=== PATIENT | male | born 1940 | race Caucasian/White ===

== ENCOUNTER 2017-04-05 07:00 | Observation (INO) ==
[2017-04-05] MEDS ORDERED: ASPIRIN PO STA (07:17)
[2017-04-05 07:46] LABS: MANUAL DIFF NEEDED? NO
--- NOTE | 2017-04-05 07:56 | PROVIDER DOCUMENTATION ---
HPI-Chest Pain - General Chief Complaint: Chest Pain Stated Complaint: CP Time Seen by Provider: 04/05/17 07:16 Allergies/Adverse Reactions: Patient Allergies Allergy/AdvReac Type Severity Reaction Status Date / Time No Known Allergies Allergy Verified 04/05/17 07:47 Home Medications: Home Medication List Medication Instructions Recorded Confirmed Last Taken Type Aspirin 325 mg PO DAILY 04/05/17 04/05/17 04/05/17 05:30 History 325 MG Atorvastatin Calcium 20 mg PO DAILY 04/05/17 04/05/17 04/05/17 05:30 History 20 MG Celecoxib [Celebrex] 200 mg PO DAILY 04/05/17 04/05/17 04/05/17 05:30 History 200 MG Levothyroxine [Synthroid] 50 microgm PO DAILY 04/05/17 04/05/17 04/05/17 05:30 History 50 MICROGM Metoprolol Succinate E.r. [Toprol 50 mg PO DAILY 04/05/17 04/05/17 04/05/17 05: 30 History Xl] 50 MG Multivitamin [Multivitamins] 1 each PO DAILY 04/05/17 04/05/17 04/05/17 05:30 History 1 EACH - History of Present Illness-CP Nature of Presenting Problem: Reports R shoulder blade area pain with radiating to substernal area started 2- 3 hours ago. Diaphoretic but no SOB. Same pain as when he had stent in 1994. Been seeing Dr. Solis, Rehabilitation Therapist at [place] and most recent stress test was 4 years ago, which was normal. The pain lasted about 40min and resolved when seen at ER. Location: reports: substernal, shoulder, back Chest Pain Radiation: reports: other (See above) Quality of Pain: reports: aching Severity in ED: moderate Onset/Duration: 1-3 hours ago Timing: improving, gone now Context/Activities at Onset: reports: none Modifying Factors: improves with: nothing Associated Symptoms: reports: diaphoresis. denies: dizziness, nausea, syncope, vomiting Nitro Today/Relief: no nitro taken today Aspirin Treatment Today: 325 mg x 1 Prior Chest Pain/Cardiac Workup: reports: cardiac cath, heart attack, stress test. denies: pulmonary embolism, thallium scan Similar Symptoms Previously?: Yes Recently Seen Here or By Another Healthcare Provider: No Review of Systems - Adult - REVIEW OF SYSTEMS - ADULT Constitutional: reports: no symptoms reported Eyes: reports: no symptoms reported Ears, Nose, Mouth & Throat: reports: no symptoms reported Cardiovascular: reports: see HPI, chest pain. denies: orthopnea, poor circulation, syncope Respiratory: reports: see HPI. denies: cough Gastrointestinal: reports: no symptoms reported Genitourinary: reports: no symptoms reported Musculoskeletal: reports: no symptoms reported Integumentary: reports: no symptoms reported Neurological: reports: no symptoms reported Psychiatric: reports: no symptoms reported Endocrine: reports: no symptoms reported Hematologic/Lymphatic: reports: no symptoms reported Allergic/Immunologic: reports: no symptoms reported All Other Systems: Reviewed and Negative Past History - Adult - PAST MEDICAL HISTORY-ADULT Review of Records: reports: Old Records Reviewed, Nursing Assessment Review, Medications Reviewed, Social history reviewed & non-contributory. Physical Exam-General - PHYSICAL EXAM-ADULT Initial Vital Signs Reviewed: Yes - CONSTITUTIONAL General Appearance: appears well, alert, no apparent distress - EYES Eyes: PERRL/EOMI, pink conjunctivae - HEAD, EARS, NOSE, MOUTH & THROAT HENMT: normocephalic/atraumatic, moist mucous membranes, normal ENT inspection - NECK Neck: non-tender, full range of motion, supple - RESPIRATORY Respiratory: chest non-tender, lungs clear, normal breath sounds, no pleuratic chest pain, no respiratory distress - CARDIOVASCULAR Cardiovascular: normal peripheral pulses, regular rate, rhythm, no edema - GASTROINTESTINAL (ABDOMEN) Abdominal Exam: normal bowel sounds, non tender, soft, no organomegaly, no pulsatile mass - MUSCULOSKELETAL Back Exam: normal inspection, no CVA tenderness, no vertebral tenderness Extremity: normal range of motion, non-tender, normal gait, normal inspection - SKIN Integumentary: normal color, normal turgor, warm/dry - NEUROLOGIC Neurologic: no motor/sensory deficits - PSYCHIATRIC Psych/Mental Status: normal mood/affect, normal thought content, normal thought process, oriented x 3 Progress - PLAN OF CARE/RESULTS Progress/Plan/Lab Results: Vital Signs - 8 hr 04/05/17 07:07 Temperature 97.9 F Pulse Rate 71 Respiratory Rate 18 Blood Pressure 179/77 O2 Sat by Pulse Oximetry 97 Laboratory Results - last 24 hr 04/05/17 04/05/17 04/05/17 07:34 07:34 07:34 WBC 4.40 L RBC 4.33 L Hgb 14.2 Hct 42.0 MCV 97.0 MCH 32.8 H MCHC 33.8 RDW Std Deviation 13.2 Plt Count 42 L MPV 10.2 Immature Gran % (Auto) 0.5 Neut % (Auto) 59.4 Lymph % (Auto) 23.9 [place] % (Auto) 10.7 H Eos % (Auto) 4.8 Baso % (Auto) 0.7 Immature Gran # (Auto) 0.02 Neut # (Auto) 2.62 Lymph # (Auto) 1.05 L [place] # (Auto) 0.47 Eos # (Auto) 0.21 Baso # (Auto) 0.03 PT INR PTT (Actin FS) D-Dimer 0.70 H Sodium 140 Potassium 4.2 Chloride 105 Carbon Dioxide 21 L Anion Gap 14 BUN 15 Creatinine 0.8 Estimated GFR/1.73 m2 > 60 BUN/Creatinine Ratio 19 Glucose 97 Calculated Osmolality 280 Calcium 8.8 Magnesium 2.1 Total Bilirubin 0.75 AST 19 ALT 12 Alkaline Phosphatase 79 Creatine Kinase 148 Troponin T Une-U-Hlfwxgeoxmr Pept Total Protein 6.8 Albumin 4.0 Globulin 2.8 Albumin/Globulin Ratio 1.4 Lipase Urine Source Urine Color Urine Turbidity Urine pH Ur Specific [place] Urine Protein Ur Glucose (Stick) Ur Ketones (Stick) Urine Blood Urine Nitrite Urine Bilirubin Urobilinogen Dipstick Urine Leukocytes Urine WBC (Auto) Urine RBC (Auto) U Epithel Cells (Auto) Urine Bacteria (Auto) 04/05/17 04/05/17 04/05/17 07:34 07:34 07:34 WBC RBC Hgb Hct MCV MCH MCHC RDW Std Deviation Plt Count MPV Immature Gran % (Auto) Neut % (Auto) Lymph % (Auto) [place] % (Auto) Eos % (Auto) Baso % (Auto) Immature Gran # (Auto) Neut # (Auto) Lymph # (Auto) [place] # (Auto) Eos # (Auto) Baso # (Auto) PT 10.2 INR 0.97 PTT (Actin FS) 20.5 L D-Dimer Sodium Potassium Chloride Carbon Dioxide Anion Gap BUN Creatinine Estimated GFR/1.73 m2 BUN/Creatinine Ratio Glucose Calculated Osmolality Calcium Magnesium Total Bilirubin AST ALT Alkaline Phosphatase Creatine Kinase Troponin T < 0.010 Dhl-S-Loabrqjfurq Pept 170 Total Protein Albumin Globulin Albumin/Globulin Ratio Lipase Urine Source Urine Color Urine Turbidity Urine pH Ur Specific [place] Urine Protein Ur Glucose (Stick) Ur Ketones (Stick) Urine Blood Urine Nitrite Urine Bilirubin Urobilinogen Dipstick Urine Leukocytes Urine WBC (Auto) Urine RBC (Auto) U Epithel Cells (Auto) Urine Bacteria (Auto) 04/05/17 04/05/17 07:34 07:55 WBC RBC Hgb Hct MCV MCH MCHC RDW Std Deviation Plt Count MPV Immature Gran % (Auto) Neut % (Auto) Lymph % (Auto) [place] % (Auto) Eos % (Auto) Baso % (Auto) Immature Gran # (Auto) Neut # (Auto) Lymph # (Auto) [place] # (Auto) Eos # (Auto) Baso # (Auto) PT INR PTT (Actin FS) D-Dimer Sodium Potassium Chloride Carbon Dioxide Anion Gap BUN Creatinine Estimated GFR/1.73 m2 BUN/Creatinine Ratio Glucose Calculated Osmolality Calcium Magnesium Total Bilirubin AST ALT Alkaline Phosphatase Creatine Kinase Troponin T Ymt-Z-Owhmbjwxyau Pept Total Protein Albumin Globulin Albumin/Globulin Ratio Lipase 28 Urine Source CLEAN CATCH Urine Color YELLOW Urine Turbidity CLEAR Urine pH 5.5 Ur Specific [place] 1.029 Urine Protein TRACE A Ur Glucose (Stick) NEGATIVE Ur Ketones (Stick) NEGATIVE Urine Blood NEGATIVE Urine Nitrite NEGATIVE Urine Bilirubin NEGATIVE Urobilinogen Dipstick NORMAL Urine Leukocytes NEGATIVE Urine WBC (Auto) <10 Urine RBC (Auto) <10 U Epithel Cells (Auto) <10 Urine Bacteria (Auto) NEGATIVE Orders Category Date Time Status Cardiac Monitoring DIRECTED Care 04/05/17 07:17 Active Saline Loc NOW Care 04/05/17 07:17 Active ANGIOGRAM/PULMONARY ARTERIES [CT] Stat Exams 04/05/17 08:59 Taken CHEST-PORTABLE [RAD] Stat Exams 04/05/17 07:17 Draft CBC WITH ELECTRONIC DIFF [HEME] Stat Lab 04/05/17 07:34 Completed CK PROFILE [SP CHEM] Stat Lab 04/05/17 07:34 Completed CK PROFILE [SP CHEM] Stat Lab 04/05/17 10:19 Uncollected COMPREHENSIVE METABOLIC PANEL [CHEM] Stat Lab 04/05/17 07:34 Completed D-DIMER [CHEM] Stat Lab 04/05/17 07:34 Completed LIPASE [CHEM] Stat Lab 04/05/17 07:34 Completed MAGNESIUM [CHEM] Stat Lab 04/05/17 07:34 Completed PRO B-NATRIURETIC PEPTIDE Stat Lab 04/05/17 07:34 Completed PROTIME WITH INR [COAG] Stat Lab 04/05/17 07:34 Completed PTT [COAG] Stat Lab 04/05/17 07:34 Completed TROPONIN T Stat Lab 04/05/17 07:34 Completed TROPONIN T Stat Lab 04/05/17 10:19 Uncollected UA NIMS W/REFLEX CULT [URINALYSIS] Stat Lab 04/05/17 07:55 Completed Aspirin Med 04/05/17 07:17 Discontinued 325 mg PO STAT STA EKG [EKG] Stat Ther 04/05/17 07:10 Draft Result Diagrams: 04/05/17 07:34 04/05/17 07:34 - EKG 1 EKG Interpretation (*Must complete 3 of following elements*): Normal Rate: 68 Rhythm: NSR [place]: normal QRS: normal DC Interval: normal - XRAY 1 XRAY Study: Chest Impression: Normal - CONSULTS/PCP/HOSPITALIST Notification Time Discussed: 10:36 Reason/Comments: Admit to Dr. Ho Consult Disposition: Admit Departure - Departure Time of Disposition Decision: 10:36 DIAGNOSIS: Chest pain Qualifiers: Chest pain type: precordial pain Qualified Code(s): R07.2 - Precordial pain Disposition: ADMITTED INPATIENT 09 Certified Medical Emergency: Emergent Condition: Stable Referrals and Follow-Ups: Daniel Davis DO [Primary Care Provider] - - Critical Care Note This patient required my direct & personal management of CC.: No
[2017-04-05 07:57] LABS: BASO% 0.7 % (0.0-0.8); EOS# 0.21 X1000 (0.0-0.7); EOS% 4.8 % (0.0-10.0); HEMOGLOBIN 14.2 g/dL (14.0-18.0); IMM GRAN# 0.02 X1000 (0.0-0.04); IMM GRAN% 0.5 % (0.0-0.5); LYMPH# 1.05 X1000 (1.2-3.4); LYMPH% 23.9 % (20.5-51.1); MCH 32.8 PG (27-31); MCHC 33.8 g/dL (33-37); MONO# 0.47 X1000 (0.11-0.59); MONO% 10.7 % (1.7-9.3); MPV 10.2 FL (7.4-10.4); NEUT% 59.4 % (42.2-75.2); PLT 42 X1000 (130-400); RBC 4.33 XMIL (4.7-6.1)
[2017-04-05 07:59] LABS: URINE CULTURE NEEDED? NO; URINE MICRO REVIEW NEEDED? NO; URINE SOURCE CLEAN CATCH
[2017-04-05 07:59] LABS: INR 0.97; PROTIME 10.2 Seconds (9.2-11.7); PTT 20.5 Seconds (22.0-36.0)
[2017-04-05 08:07] LABS: BILIRUBIN URINE NEGATIVE (NEGATIVE); BLOOD URINE NEGATIVE (NEGATIVE); COLOR YELLOW; GLUCOSE URINE NEGATIVE (NEGATIVE); LEUKOCYTES URINE NEGATIVE (NEGATIVE); NITRITE URINE NEGATIVE (NEGATIVE); PH URINE 5.5; PROTEIN URINE TRACE mg/dL (NEGATIVE); SP GRAVITY URINE 1.029; TURBIDITY URINE CLEAR (CLEAR); UROBILINOGEN URINE NORMAL (NORMAL)
[2017-04-05 08:09] LABS: UR EPITHELIAL CELLS <10 /HPF (<10); URINE BACTERIA NEGATIVE /HPF; URINE RBC <10 /HPF (<10); URINE WBC <10 /HPF (<10)
[2017-04-05 08:14] LABS: AGAP 14; ALKALINE PHOSPHATASE 79 U/L (32-122); BUN 15 mg/dL (8-22); CALCIUM 8.8 mg/dL (8.8-10.2); CHLORIDE 105 mmol/L (98-107); CK PROFILE 148 U/L (24-204); COSMO 280; GOT 19 U/L (10-34); GPT 12 U/L (10-44); MAGNESIUM 2.1 mg/dL (1.5-2.7); POTASSIUM 4.2 mmol/L (3.5-5.1); SODIUM 140 mmol/L (136-145); TCO2 21 mmol/L (25-35); TOTAL BILIRUBIN 0.75 mg/dL (0.20-1.00); TOTAL PROTEIN 6.8 g/dL (6.3-8.3)
--- NOTE | 2017-04-05 08:54 | Diag Imaging Result Document ---
PROCEDURE NAME: CHEST-PORTABLE - 04/05/2017 PORTABLE CHEST X-RAY: COMPARISON: None. FINDINGS: The lungs are normally expanded and clear. Heart size and mediastinal contours are normal. No pneumothorax or pleural effusion. IMPRESSION: Negative exam.
--- NOTE | 2017-04-05 10:05 | EKG Report ---
Test Performed on : 04/05/2017 07:11:27 AM Test Reason : CP Blood Pressure : / mmHG Vent. Rate : 068 BPM Atrial Rate : 068 BPM P-R Int : 140 ms QRS Dur : 078 ms QT Int : 406 ms P-R-T Axes : 038 006 076 degrees QTc Int : 431 ms Normal sinus rhythm. Normal ECG When compared with ECG of 03-FEB-2011 10:46, No significant change was found Unconfirmed Result
--- NOTE | 2017-04-05 11:21 | Diag Imaging Result Document ---
PROCEDURE NAME: ANGIOGRAM/PULMONARY ARTERIES - 04/05/2017 CT PULMONARY ANGIOGRAM WITH INTRAVENOUS CONTRAST: A CT dose reduction protocol was used. COMPARISON: None. FINDINGS: Axial CT images of the chest were obtained after administering intravenous contrast. Coronal MIP images were generated. There is no pulmonary embolism. Heart and great vessels are normal. Aside from a couple of granulomas, the lungs are clear. There is a small 1.3 cm left adrenal nodule. Otherwise, upper abdominal images are normal. Bony structures are intact. IMPRESSION: Negative exam. MTDD
[2017-04-05] MEDS ORDERED: ZOFRAN IV PRN (13:50)
--- NOTE | 2017-04-05 15:07 | HISTORY AND PHYSICAL ---
PCP: Dr. Daniel Davis. REGULATOR INSPECTOR: [facility] [place]. CHIEF COMPLAINT: Chest pain. HISTORY OF PRESENT ILLNESS: Mr. Nice is a very pleasant 76-year-old male who is a history of known coronary disease status post stenting to the circumflex artery. He was in his normal state of health until this morning at which time he awoke with chest pain that he states is previous to similar anginal episodes prior to his circumflex stenting. He describes a dull right shoulder pain followed by midsternal pain. This is associated with some mild diaphoresis but no shortness of breath and no nausea or vomiting. The pain lasted about 45 minutes and was relieved with nothing. Prior to this morning's episode he has been in his normal state of health. He denies any exertional chest pain, he can walk up a flight of steps without any chest pain. He denies lower extremity edema or orthopnea. No PND. He denies any fever, chills, cough or congestion. He got to the ER today. Labs and diagnostics were done, EKG showed normal sinus rhythm without acute ST or T abnormalities and his blood work were largely unremarkable with the exception of leukopenia and thrombocytopenia. His vital signs are stable. He is going to be admitted to the floor for observation status. PAST MEDICAL HISTORY: 1. Known coronary disease status post stenting to the circumflex artery followed by Dr. Solis in [place]. 2. Hypothyroidism. 3. Hyperlipidemia. PAST SURGICAL HISTORY: Stenting to the circumflex artery followed by in stent restenoses and re- stenting. SOCIAL HISTORY: Patient denies tobacco, alcohol or drug use. He is , at the bedside. FAMILY HISTORY: Father in the 80s secondary to house fire. Mother is also recently he believes secondary to intracranial bleeding secondary to fall. REVIEW OF SYSTEMS: Fourteen-point review of systems obtained and found to be negative with the exception of the HPI. HOME MEDICATIONS: Aspirin 325 mg daily, atorvastatin 20 mg daily. Celebrex 200 mg daily, Synthroid 50 mcg daily, Toprol-XL 50 mg daily, multivitamin 1 daily. ALLERGIES: No known drug allergies. PHYSICAL EXAMINATION: VITAL SIGNS: Blood pressure 179/77, heart rate 71, respiratory 18, O2 saturation 97% on room air, temperature is 97.9 degrees. GENERAL: This is a well-developed but overweight male lying in hospital bed. No acute distress. NEUROLOGIC: The patient is awake, alert and oriented. He follows commands without focal deficits. HEENT: Head is atraumatic, normocephalic. His pupils are equal, round, reactive to light. Oral mucosa is moist. Trachea is midline. No JVD. No carotid bruits. CHEST: Clear to auscultation bilaterally. CV: Regular rate and rhythm. S1-S2 is noted. No murmurs, gallops, clicks, or rubs. GI: Soft, nondistended, nontender. Bowel sounds positive. EXTREMITIES: Without edema, clubbing, cyanosis. Pulses are palpable bilaterally. DIAGNOSTIC DATA: Chest x-ray is negative for acute process. EKG normal sinus rhythm without acute ST-T abnormalities. WBC 4.4, hemoglobin 14.2, hematocrit 42, PT 10.2, INR 0.97, D-dimer 0.7. Sodium 140, potassium 4.2, chloride 105, CO2 21, anion gap 14, BUN 15, creatinine 0.8, glucose is 97, calcium 8.8, magnesium 2.1. LFTs within normal limits. Cardiac enzymes negative x2 sets. Albumin 4, lipase 28. UA negative. ASSESSMENT AND PLAN: 1. Chest pain. Patient reports that the pain is similar to previous pain just prior to his stenting in 1993. However overall the pain is atypical. Will admit the patient for observation status and consult Cardiology, order echocardiogram and continue to trend his enzymes. Will check a lipid panel in the morning as well as a hemoglobin A1c. 2. Coronary artery disease as above. 3. Leukopenia/thrombocytopenia: Patient does not report any hematologic history. Will check a B12, folate and thyroid function and trend his CBC daily. He denies any history of liver disease as well. 4. Hypothyroidism: Continue his Synthroid and check thyroid function. 5. Deep vein thrombosis prophylaxis will be provided with Lovenox. Further recommendations to follow. Dictated by HELEN Berkowitz for Lola Ambriz MD cc: MD Lola Cardenas MD
--- NOTE | 2017-04-05 16:28 | CONSULTATION ---
DATE OF CONSULTATION: 04/05/2017 REASON FOR CONSULTATION: Cardiology consulted for chest pain, CAD. HISTORY OF PRESENT ILLNESS: Mr. Nice is a 76-year-old gentleman who has a known history of coronary artery disease with stent placement to circumflex artery. He had been doing well. He woke up this morning with chest discomfort that he describes as a pressure-like sensation, going to the left interscapular region. This lasted for about 45 minutes. He came to the emergency room and was ruled out for myocardial infarction by cardiac enzymes. Prior to this episode he has not had any exertional chest discomfort in the last 6 months. There is no orthopnea, paroxysmal nocturnal dyspnea. He has otherwise been active. REVIEW OF SYSTEMS: A 14 point review of system was done. GI System: There is no history of nausea, vomiting, diarrhea. There is no history of hematemesis or melena. Central nervous system: No focal weakness to suggest CVA or TIA. GI system: There is no dysuria or hematuria. Respiratory System: There is no history of cough, expectoration, hemoptysis. There is no history of fevers or chills. PAST MEDICAL HISTORY: 1. Coronary artery disease, status post stent placement to the circumflex artery. 2. Hypothyroidism. 3. Hyperlipidemia. 4. Abdominal colon surgery. SOCIAL HISTORY: Patient denies tobacco or alcohol abuse. Is . FAMILY HISTORY: Father in his 80s from a house fire house. Mother is recently secondary to intracranial bleed. HOME MEDICATIONS: Aspirin 325, atorvastatin 20, Celebrex 200, Synthroid 50, Toprol-XL 50, multivitamins. PHYSICAL EXAMINATION: Vital signs: Blood pressure when he came in was 179/77. At the time of my examination, blood pressure 148/66. Cardiovascular System: Normal jugular venous pressure. First and second heart sounds were heard. There is no S3, S4 or gallop. Respiratory System: Normal air entry. There are no crepitations or rhonchi. Abdomen: Soft, nontender. There was no guarding or rigidity. Bowel sounds were heard. Central nervous system: Alert and oriented. Was moving all 4 extremities. Extremities: Examination of extremities reveals no pedal edema. HEENT: Atraumatic, normocephalic. Pupils were equal and reacting to light. ASSESSMENT AND PLAN: 1. Mr. Иван Nice is a 76-year-old gentleman with a history of coronary artery disease, stent placement in the past, abdominal surgery in the past, hypothyroidism, and hypertension, comes with complaints of chest pain today. Otherwise he has been active. He has ruled out for myocardial infarction by cardiac enzymes. From a cardiac standpoint, we will get an echocardiogram to reassess cardiac and valvular function. We will also set him up to undergo a Cardiolite stress test to assess for and rule out ischemia. 2. Hypertension. Continue with his current medications. 3. Hypothyroidism continue with his levothyroxine. 4. He is on Lipitor for hyperlipidemia. Continue with the same. Thank you for the consult. We will follow the hospital course. cc: Mario Adkins MD
[2017-04-05] MEDS: LOVENOX SUBQ SCH (16:42)
[2017-04-06 05:21] LABS: HEMATOCRIT 43.7 % (42.0-52.0); HEMOGLOBIN 14.7 g/dL (14.0-18.0); MCHC 33.6 g/dL (33-37); MPV 9.3 FL (7.4-10.4); RBC 4.46 XMIL (4.7-6.1)
[2017-04-06 05:22] LABS: HEMOGLOBIN A1C 5.3 % (4.8-6.0)
[2017-04-06 05:37] LABS: AGAP 14; BUN 16 mg/dL (8-22); CALCIUM 9.1 mg/dL (8.8-10.2); CHLORIDE 104 mmol/L (98-107); COSMO 282; HDL 52 mg/dL (35-55); LDL 74 mg/dL; MAGNESIUM 2.1 mg/dL (1.5-2.7); POTASSIUM 4.3 mmol/L (3.5-5.1); SODIUM 141 mmol/L (136-145); TCO2 23 mmol/L (25-35); TRIGLYCERIDES 172 mg/dL (39-160); VLDL 34 mg/dL
--- NOTE | 2017-04-06 06:17 | EKG Report ---
Test Performed on : 04/06/2017 05:59:30 AM Test Reason : chest pain Blood Pressure : / mmHG Vent. Rate : 064 BPM Atrial Rate : 064 BPM P-R Int : 198 ms QRS Dur : 086 ms QT Int : 416 ms P-R-T Axes : 074 -03 081 degrees QTc Int : 429 ms Normal sinus rhythm. Normal ECG When compared with ECG of 05-APR-2017 07:11, (Unconfirmed) No significant change was found Confirmed by Surjit Lora MD ([id number]) on 04/06/2017 6:50:29 AM
[2017-04-06] MEDS ORDERED: LEXISCAN ONE (08:13)
[2017-04-06] MEDS ORDERED: ASPIRIN PO SCH (09:00)
[2017-04-06] MEDS ORDERED: THERA M PLUS PO SCH (09:00)
[2017-04-06] MEDS ORDERED: LIPITOR PO SCH (09:00)
[2017-04-06] MEDS ORDERED: TOPROL XL PO SCH (09:00)
[2017-04-06] MEDS ORDERED: SYNTHROID PO SCH (09:00)
[2017-04-06] MEDS: LOVENOX SUBQ SCH (10:24)
[2017-04-06 12:02] VITALS: BP 132/102
--- NOTE | 2017-04-06 13:01 | ECHO REPORT ---
ORDER DATE: 04/05/2017 MEASUREMENTS: Left ventricular end-diastolic diameter 5.7, systolic diameter 3.7, posterior wall thickness 1.1, septal thickness 1.1, left atrium 4.5, aortic root 4.3. SUMMARY: 1. Technically difficult study due to limited acoustic window quality. Intravenous echo contrast agent Definity utilized to improve endocardial definition for assessment of left ventricular function and wall motion. 2. Aortic valve is trileaflet and opens well. Peak gradient across aortic valve was less than 10 mmHg. There is mild aortic regurgitation. Mitral and tricuspid and pulmonic valves are without structural abnormality with trace mitral regurgitation. Estimated systolic PA pressure by Doppler is 30 mmHg. Aortic root is mildly enlarged. 3. Normal left ventricular dimension suggested. Estimated left ejection fraction appears to be at least 60%. No regional wall motion abnormalities are evident. There are prominent trabeculations in the lateral apex left ventricle. There is no evidence of left ventricular thrombus. Doppler suggests grade 1 left ventricular diastolic dysfunction. Left atrium is mildly enlarged. Right atrium and right ventricle normal size with normal right ventricular systolic function. 4. No pericardial fusion. 5. Appearance of inferior vena cava suggests normal central venous pressure. CONCLUSIONS: 1. Technically difficult study. Intravenous echo contrast agent Definity utilized to improve endocardial definition. 2. Mild aortic regurgitation. 3. Normal left ventricular systolic function without wall motion abnormality evident for grade 1 left ventricular diastolic dysfunction suggested. 4. Mild left atrial enlargement. 5. Mild aortic root enlargement. cc: MD Piotr Calvillo CRNP
--- NOTE | 2017-04-06 15:18 | PROGRESS NOTE ---
DATE: 04/06/2017 SUBJECTIVE: Today Mr. Nice referred to be doing fine. According to him, he does not have any more chest pain. No nausea, no diarrhea. OBJECTIVE: Vitals: Blood pressure is 132/102, pulse of 60, respirations 16, temperature 98.4 degrees. General: Mr. Nice is a 76-year-old male morbidly obese with a BMI of 34.3, was in bed, did not seems to be in any distress. HEENT: Mucosa was pink and moist. Anicteric. Acyanotic. Neck: Supple. Chest: Clear. Cardiovascular: Regular rate and rhythm. Abdomen: Soft, is distended but nontender. Extremities: No pedal edema. DENTAL SALES REPRESENTATIVE: Patient is alert and oriented x4. There is no focal neurological deficit. LABORATORY DATA: WBC is 6.58, hemoglobin is 14.7, platelet count of 172,000. Chemistries reviewed, completely normal. A1c is 5.3, TSH is 2.23. Lipid panel is also reviewed. Mildly hypertriglyceridemia. IMAGING DATA: A CTA of the lungs was done yesterday which was negative for PE. An echocardiogram was also done yesterday which shows an ejection fraction of about 60%. No regional wall abnormality. There was however a grade 1 ventricular diastolic dysfunction. ASSESSMENT: 1. Atypical chest pain. Patient is status post stress test. We are pending the report. So far EKGs and troponins have all been unremarkable. 2. History of coronary artery disease. 3. Hypothyroidism. Will continue with the current Synthroid dose. 4. Morbid obesity. Patient has been counseled. 5. Dyslipidemia. Will continue with atorvastatin. So in general I think Mr. Nice is relatively stable, is no more having any pain. Will be pending the official report on the stress test. If that is normal we might be able to discharge him. cc: Colin Rosales MD
--- NOTE | 2017-04-07 06:53 | DISCHARGE SUMMARY ---
ADMISSION DATE: 04/05/2017 DISCHARGE DATE: 04/06/2017 DISPOSITION: Home. FOLLOWUP: 1. Patient's annual giving officer in [place]. 2. PCP, Dr. Daniel Davis. 3. Portable Track Crew Chief, Dr. Solis. ADMISSION DIAGNOSES: 1. Chest pain. 2. Coronary artery disease. 3. Hypothyroidism. DISCHARGE DIAGNOSES: 1. Atypical chest pain. Normal troponins, normal electrocardiogram and stress test is negative. 2. History of coronary artery disease. 3. Hypothyroidism. 4. Morbid obesity. 5. Dyslipidemia. DISCHARGE MEDICATIONS: 1. Atorvastatin 20 mg daily. 2. Multivitamin 1 tablet daily. 3. Aspirin 325 p.o. daily. 4. Metoprolol succinate 50 mg daily. 5. Levothyroxine 50 mg daily. PRESENTING COMPLAINT: Chest pain. HISTORY OF PRESENTING COMPLAINT: Mr. Nice is a 76-year-old male with a history of coronary artery disease status post stenting in the circumflex artery, who presented to the emergency department because of ongoing chest pain for the past couple days. Upon presentation, patient was thoroughly evaluated. Initial troponins were negative and EKG was nonsignificant for any ST-segment or T-wave changes. The patient was, however, admitted because of the significant coronary disease to rule out any acute coronary syndrome. HOSPITAL COURSE: Patient did pretty well during the hospital stay, was started on her regular medications and Cardiology got to see the patient, who also recommended a stress test. This was subsequently done and it was completely negative. Patient's chest pain this morning was completely gone, so it was deemed safe to discharge the patient home. Continue with the current medication and follow up with Dr. Solis and Dr. Davis on outpatient basis. All the discharge instructions were discussed with the patient and he was in agreement with the plan. TIME SPENT: For discharge was 32 minutes. cc: Colin Rosales MD
--- NOTE | 2017-04-07 14:40 | PROGRESS NOTE ---
DATE: 04/07/2017 SUBJECTIVE: At this moment, this patient's chest pain is better. He has been getting pain medication. He is not complaining of shortness of breath. This patient was discharged yesterday secondary to chest pain that was atypical in nature with normal troponins, normal EKG, and stress test. He does have a history of coronary artery disease, hypothyroidism, morbid obesity, and dyslipidemia. He came back and he was evaluated and admitted again. We did serial troponin with the following results: 0.03, then it increased to 0.1, and then increased to 0.14. Dr. Adkins evaluated this patient, and he started making arrangements to send this patient to [facility]. Lovenox twice a day was started, as well as aspirin and home medications. OBJECTIVE: Vital Signs: Temperature 97.6 degrees, pulse is 61, respiratory rate 18, blood pressure 143/67, oxygen saturation 99% on room air. HEENT: Normocephalic. No trauma. PERRLA. Neck: supple. No JVD. No masses. Central trachea. Chest clear to auscultation. No wheezing. No rales. Cardiovascular: RRR. No murmurs. Abdomen is soft, nontender, nondistended. No hepatosplenomegaly. Extremities: No edema. No clubbing. No cyanosis. Neurologic: The patient is alert and oriented x3. No focal deficits. LABORATORY: WBC 7.2, hemoglobin 16, hematocrit 47, platelets 209,000. Sodium 140, potassium 3.9, chloride 104, bicarbonate 21. BUN 15, creatinine 0.9, glucose 94, calcium 9.2, troponin 0.03, 0.107, 0.146. ASSESSMENT AND PLAN: 1. Ibr-QF-kdueizuez myocardial infarction. This patient has been placed on Lovenox twice a day. Aspirin, beta blockers. Dr. Adkins evaluated this patient, and they are doing the arrangements to send this patient to [facility] for further treatment with Cardiology Department. 2. History of coronary artery disease, aware. 3. Hypothyroidism. Continue with the same management. 4. Dyslipidemia. Continue with statins. 5. Morbid obesity, aware. cc: Ger Ventura MD
--- NOTE | 2017-04-21 07:21 | Diag Imaging Result Document ---
PROCEDURE NAME: MYOCARDIAL PERF SCAN, STR/REST - 04/06/2017 LEXISCAN CARDIOLITE STRESS TEST: Lexiscan was infused per standard protocol. There was no chest pain. Stress electrocardiogram was negative for ischemia. 15.2 mCi of Cardiolite was injected for the rest phase, 45.8 mCi of Cardiolite was injected for the stress. Gated SPECT images were obtained standard views. Images revealed significant diaphragmatic and chest wall attenuation. Better tracer images on the stress compared to the rest. Left ventricular cavity size was normal. There is a low-grade fixed defect in the base of the inferior wall with normal wall motion. Rest of the myocardium had normal tracer uptake. This is likely to represent low-grade scar versus attenuation defect. Left ventricular ejection fraction 75%. CONCLUSIONS: 1. No chest pain. 2. Negative Lexiscan stress electrocardiogram. 3. Myocardial perfusion images reveal no evidence of ischemia. There is low-grade small-sized fixed defect in the base of the inferior wall with normal wall motion. This is likely to represent attenuation defect. 4. Left ventricular ejection fraction 75%. cc: Mario Adkins MD
== END 2017-04-06 16:30 | disposition home or self-care (01) ==
LOC: ED 07:00 → 3N 13:34 → SUATTDRO 13:34 → INTOOBSV 13:34
PROVIDERS: ATTEND Internal Medicine

== ENCOUNTER 2017-04-07 03:17 | Observation (INO) ==
[2017-04-07] MEDS ORDERED: ASPIRIN PO STA (03:27)
[2017-04-07] MEDS ORDERED: NITROGLYCERIN TOP ONE (03:31)
[2017-04-07] MEDS ORDERED: ZOFRAN IV ONE (03:31)
[2017-04-07] MEDS ORDERED: MORPHINE IV ONE ×2 (03:31→04:29)
[2017-04-07] MEDS ORDERED: NITROGLYCERIN SL ONE (03:31)
--- NOTE | 2017-04-07 03:42 | PROVIDER DOCUMENTATION ---
HPI-Chest Pain - General Chief Complaint: Chest Pain Stated Complaint: CHEST PAIN Time Seen by Provider: 04/07/17 03:21 Source: patient, family Allergies/Adverse Reactions: Patient Allergies Allergy/AdvReac Type Severity Reaction Status Date / Time No Known Allergies Allergy Verified 04/07/17 03:53 Home Medications: Home Medication List Medication Instructions Recorded Confirmed Last Taken Type Aspirin 325 mg PO DAILY 04/05/17 04/07/17 04/06/17 History Atorvastatin Calcium 20 mg PO DAILY 04/05/17 04/07/17 04/06/17 History Levothyroxine [Synthroid] 50 microgm PO DAILY 04/05/17 04/07/17 04/06/17 History Metoprolol Succinate E.r. [Toprol 50 mg PO DAILY 04/05/17 04/07/17 04/06/17 History Xl] Multivitamin [Multivitamins] 1 each PO DAILY 04/05/17 04/07/17 04/06/17 History - History of Present Illness-CP Nature of Presenting Problem: pt states he woke up about an hour ago from his sleep with severe pressure like pain lower sternum/slightly to right that radiated to his right shoulderr. He was briefly diaphoretic and slightly SOB. No Nausea. He took a adult str ASA and came directly to the ED. Currently the pain has decreased from a 9/10 to a 5 /10. It is not plueritic. It does not radiate to his back. HE was just in the hospital for this same pain and had serial enzymes which were negative, a neg Pulm angio, and a normal NM stress test. Review of Systems - Adult - REVIEW OF SYSTEMS - ADULT Constitutional: denies: chills, fever Eyes: denies: discharge Ears, Nose, Mouth & Throat: denies: ear pain, sinus problem, throat swelling Cardiovascular: reports: chest pain. denies: edema, irregular heart rate, orthopnea, palpitations, syncope Respiratory: reports: shortness of breath. denies: cough, hemoptysis, pleurisy , wheezing Gastrointestinal: reports: nausea. denies: abdominal pain, diarrhea, vomiting Genitourinary: denies: dysuria, flank pain Musculoskeletal: denies: back pain, muscle aches, neck pain Integumentary: denies: rash Neurological: denies: headache/migraines, numbness, paresthesia Psychiatric: reports: no symptoms reported Endocrine: reports: no symptoms reported Hematologic/Lymphatic: reports: no symptoms reported Allergic/Immunologic: reports: no symptoms reported All Other Systems: Reviewed and Negative Past History - Adult - PAST MEDICAL HISTORY-ADULT Review of Records: reports: Old Records Reviewed, Nursing Assessment Review, Medications Reviewed, Social history reviewed & non-contributory. - PRIOR SURGERIES/PROCEDURES Surgical/Procedure History: reports: other (cardiac stenting 1993, colon restion for diverticultis) - FAMILY HISTORY Family History: reviewed, not pertinent - SOCIAL HISTORY Smoking: denies Substance Use: none/never Alcohol Use Frequency: never Living Situation: family Physical Exam-General - PHYSICAL EXAM-ADULT Initial Vital Signs Reviewed: Yes - CONSTITUTIONAL General Appearance: appears well, alert, no apparent distress - EYES Eyes: pink conjunctivae. negative: scleral icterus - HEAD, EARS, NOSE, MOUTH & THROAT HENMT: normocephalic/atraumatic - NECK Neck: non-tender, full range of motion, supple, normal inspection. negative: lymphadenopathy - RESPIRATORY Respiratory: chest non-tender, lungs clear, normal breath sounds, no pleuratic chest pain, no respiratory distress, no accessory muscle use - CARDIOVASCULAR Cardiovascular: regular rate, rhythm, no edema, no murmur - GASTROINTESTINAL (ABDOMEN) Abdominal Exam: normal bowel sounds, non tender, soft, no organomegaly, no pulsatile mass - MUSCULOSKELETAL Back Exam: normal inspection, no CVA tenderness, no vertebral tenderness Extremity: normal range of motion, non-tender, normal gait, normal inspection, no pedal edema, no calf tenderness - SKIN Integumentary: normal color, normal turgor, warm/dry - NEUROLOGIC Neurologic: grossly normal, no motor/sensory deficits - PSYCHIATRIC Psych/Mental Status: normal mood/affect, normal thought content, normal thought process, oriented x 3 Progress - PLAN OF CARE/RESULTS Progress/Plan/Lab Results: Vital Signs - 8 hr 04/07/17 03:25 04/07/17 04:35 Temperature 97.6 F Pulse Rate 80 65 Respiratory Rate 16 9 L Blood Pressure 179/85 127/64 O2 Sat by Pulse Oximetry 98 92 L Laboratory Results - last 24 hr 04/07/17 04/07/17 04/07/17 03:30 03:30 03:30 WBC 7.21 RBC 4.95 Hgb 16.0 Hct 47.0 MCV 94.9 MCH 32.3 H MCHC 34.0 RDW Std Deviation 13.4 Plt Count 209 MPV 9.1 Immature Gran % (Auto) 0.3 Neut % (Auto) 61.0 Lymph % (Auto) 22.6 [place] % (Auto) 11.0 H Eos % (Auto) 4.3 Baso % (Auto) 0.8 Immature Gran # (Auto) 0.02 Neut # (Auto) 4.40 Lymph # (Auto) 1.63 [place] # (Auto) 0.79 H Eos # (Auto) 0.31 Baso # (Auto) 0.06 PT INR PTT (Actin FS) Sodium 140 Potassium 3.9 Chloride 104 Carbon Dioxide 21 L Anion Gap 15 BUN 15 Creatinine 0.9 Estimated GFR/1.73 m2 > 60 BUN/Creatinine Ratio 17 Glucose 94 Calculated Osmolality 280 Calcium 9.2 Magnesium 2.1 Total Bilirubin 1.01 H AST 21 ALT 14 Alkaline Phosphatase 81 Creatine Kinase 148 Troponin T Jnb-[id number]-[id number] Pept 129 Total Protein 6.9 Albumin 3.9 Globulin 3.0 Albumin/Globulin Ratio 1.3 04/07/17 04/07/17 03:30 03:30 WBC RBC Hgb Hct MCV MCH MCHC RDW Std Deviation Plt Count MPV Immature Gran % (Auto) Neut % (Auto) Lymph % (Auto) [place] % (Auto) Eos % (Auto) Baso % (Auto) Immature Gran # (Auto) Neut # (Auto) Lymph # (Auto) [place] # (Auto) Eos # (Auto) Baso # (Auto) PT 10.3 INR 0.98 PTT (Actin FS) 25.9 Sodium Potassium Chloride Carbon Dioxide Anion Gap BUN Creatinine Estimated GFR/1.73 m2 BUN/Creatinine Ratio Glucose Calculated Osmolality Calcium Magnesium Total Bilirubin AST ALT Alkaline Phosphatase Creatine Kinase Troponin T 0.033 D [id number]-Qcrgnnwcqch Pept Total Protein Albumin Globulin Albumin/Globulin Ratio Orders Category Date Time Status Cardiac Monitoring DIRECTED Care 04/07/17 03:28 Active Saline Loc NOW Care 04/07/17 03:28 Active CHEST-2 VIEWS [RAD] Stat Exams 04/07/17 03:28 Taken CBC WITH ELECTRONIC DIFF [HEME] Stat Lab 04/07/17 03:30 Completed CK PROFILE [SP CHEM] Stat Lab 04/07/17 03:30 Completed COMPREHENSIVE METABOLIC PANEL [CHEM] Stat Lab 04/07/17 03:30 Completed MAGNESIUM [CHEM] Stat Lab 04/07/17 03:30 Completed PRO B-NATRIURETIC PEPTIDE Stat Lab 04/07/17 03:30 Completed PROTIME WITH INR [COAG] Stat Lab 04/07/17 03:30 Completed PTT [COAG] Stat Lab 04/07/17 03:30 Completed TROPONIN T Stat Lab 04/07/17 03:30 Completed Aspirin Med 04/07/17 03:27 Discontinued 325 mg PO STAT STA Morphine Med 04/07/17 03:31 Discontinued 4 mg IV NOW ONE Morphine Med 04/07/17 04:29 Discontinued 4 mg IV NOW ONE Nitroglycerin Med 04/07/17 03:31 Discontinued 1 inch TOP NOW ONE Nitroglycerin Sl [Nitroglycerin] Med 04/07/17 03:31 Discontinued 0.4 mg SL NOW ONE Ondansetron [Zofran] Med 04/07/17 03:31 Discontinued 4 mg IV NOW ONE EKG [EKG] Stat Ther 04/07/17 03:19 Ordered Result Diagrams: 04/07/17 03:30 04/07/17 03:30 - REASSESSMENT Reassessment #1 Time Reassessed: 05:05 (pain much better, disc w/Pedro who asks that we call our group here first, disc w/Dr Connors who agrees pt needs cath which can be done here.) Status: improving - EKG 1 Time of EKG reading by physician:: 03:22 EKG Interpretation (*Must complete 3 of following elements*): Normal Rate: 80 Rhythm: sinus [place]: normal QRS: normal CT Interval: normal ST Wave: normal Prior EKG Comparison: unchanged from prior - XRAY 1 XRAY Study: Chest Impression: Normal Departure - Departure Time of Disposition Decision: 05:06 DIAGNOSIS: Chest pain Qualifiers: Chest pain type: unspecified Qualified Code(s): R07.9 - Chest pain, unspecified Disposition: ADMITTED INPATIENT 09 Certified Medical Emergency: Emergent Condition: Good - Critical Care Note This patient required my direct & personal management of CC.: No
[2017-04-07 03:58] LABS: MANUAL DIFF NEEDED? NO
[2017-04-07 04:01] LABS: BASO% 0.8 % (0.0-0.8); EOS# 0.31 X1000 (0.0-0.7); EOS% 4.3 % (0.0-10.0); IMM GRAN# 0.02 X1000 (0.0-0.04); IMM GRAN% 0.3 % (0.0-0.5); LYMPH# 1.63 X1000 (1.2-3.4); LYMPH% 22.6 % (20.5-51.1); MCH 32.3 PG (27-31); MCV 94.9 FL (81-99); MONO# 0.79 X1000 (0.11-0.59); MPV 9.1 FL (7.4-10.4); PLT 209 X1000 (130-400); RBC 4.95 XMIL (4.7-6.1)
[2017-04-07 04:09] LABS: INR 0.98; PROTIME 10.3 Seconds (9.2-11.7); PTT 25.9 Seconds (22.0-36.0)
[2017-04-07 04:19] LABS: AGAP 15; ALBUMIN 3.9 g/dL (3.5-5.0); ALKALINE PHOSPHATASE 81 U/L (32-122); BUN 15 mg/dL (8-22); CALCIUM 9.2 mg/dL (8.8-10.2); CHLORIDE 104 mmol/L (98-107); CK PROFILE 148 U/L (24-204); COSMO 280; GOT 21 U/L (10-34); GPT 14 U/L (10-44); MAGNESIUM 2.1 mg/dL (1.5-2.7); POTASSIUM 3.9 mmol/L (3.5-5.1); SODIUM 140 mmol/L (136-145); TCO2 21 mmol/L (25-35); TOTAL BILIRUBIN 1.01 mg/dL (0.20-1.00); TOTAL PROTEIN 6.9 g/dL (6.3-8.3)
--- NOTE | 2017-04-07 05:23 | EKG Report ---
Test Performed on : 04/07/2017 05:12:02 AM Test Reason : cp Blood Pressure : / mmHG Vent. Rate : 067 BPM Atrial Rate : 067 BPM P-R Int : 166 ms QRS Dur : 086 ms QT Int : 434 ms P-R-T Axes : 037 -13 076 degrees QTc Int : 458 ms Normal sinus rhythm. Normal ECG When compared with ECG of 07-APR-2017 03:22, (Unconfirmed) No significant change was found Unconfirmed Result
--- NOTE | 2017-04-07 05:23 | EKG Report ---
Test Performed on : 04/07/2017 03:22:05 AM Test Reason : cp Blood Pressure : / mmHG Vent. Rate : 080 BPM Atrial Rate : 080 BPM P-R Int : 200 ms QRS Dur : 094 ms QT Int : 392 ms P-R-T Axes : 065 -06 068 degrees QTc Int : 452 ms Normal sinus rhythm. Normal ECG When compared with ECG of 06-APR-2017 05:59, No significant change was found Unconfirmed Result
[2017-04-07] MEDS ORDERED: TYLENOL PO PRN (07:06)
[2017-04-07] MEDS ORDERED: PRILOSEC PO SCH (07:06)
[2017-04-07] MEDS ORDERED: NITROGLYCERIN SL PRN (07:06)
[2017-04-07] MEDS ORDERED: HEPARIN SUBQ SCH (07:06)
[2017-04-07] MEDS ORDERED: ZOFRAN IV PRN (07:06)
[2017-04-07] MEDS ORDERED: MORPHINE IV PRN (07:06)
--- NOTE | 2017-04-07 07:57 | Diag Imaging Result Doc PS360 ---
EXAM: CHEST-2 VIEWS HISTORY: CP COMMENT: The lungs appear to be clear and unchanged since the previous study of 04/05/2017. There are some calcified granulomata and calcified nodes particularly in the right hilum. IMPRESSION: No acute abnormality. Electronically signed by Dallas Zendejas 04/07/2017 7:55 AM
[2017-04-07] MEDS ORDERED: SYNTHROID PO SCH (09:00)
[2017-04-07] MEDS ORDERED: TOPROL XL PO SCH (09:00)
[2017-04-07] MEDS ORDERED: LIPITOR PO SCH (09:00)
[2017-04-07] MEDS ORDERED: ASPIRIN PO SCH (09:00)
[2017-04-07] MEDS ORDERED: LOVENOX SUBQ SCH (10:30)
[2017-04-07] MEDS ORDERED: NITROGLYCERIN TOP SCH (10:30)
[2017-04-07 15:00] VITALS: BP 138/65
--- NOTE | 2017-04-07 15:14 | HISTORY AND PHYSICAL ---
CHIEF COMPLAINT: Chest pain. HISTORY OF PRESENTING ILLNESS: A 76-year-old male with a history of coronary artery disease, hypertension, hyperlipidemia at hypothyroidism, who was just discharged from the hospital after having a negative work for chest pain. The patient states that he went home and developed chest pain again. He described it as substernal pressure-like and rated the pain about 8/10. The patient subsequently had come to the emergency department. He continued to have ongoing chest discomfort. He was given adequate pain medication and nitroglycerin and his pain seemed to improve. Due to his presenting symptoms, it was thought that the patient would be placed in for observation for further evaluation and management. At the time of my examination, he had denied any headaches, vision changes, nausea, vomiting, diarrhea, shortness of breath, hemoptysis or any weight changes but complained of chest discomfort. PAST MEDICAL HISTORY: Includes hyperlipidemia, hypertension, hypothyroidism, coronary artery disease. PAST SURGICAL HISTORY: Colon surgery, appendectomy, coronary stent. ALLERGIES: No known drug allergies. CURRENT MEDICATIONS: As listed in the MAR. SOCIAL HISTORY: He denies any history of smoking, alcohol or illicit drug use. FAMILY HISTORY: No history of coronary disease. REVIEW OF SYSTEMS: Twelve point review of systems is as in HPI. Other systems negative. PHYSICAL EXAMINATION: GENERAL: Cooperative, friendly male. He is resting comfortably now. VITAL SIGNS: Temperature 97.6 degrees, pulse 80, respirations 16, blood pressure 179/85, saturating 98%. HEENT: Atraumatic, normocephalic. Extraocular movements intact. PERRLA. NECK: Supple. CHEST: Clear to auscultation. CARDIOVASCULAR: Regular rhythm. ABDOMEN: Soft, nontender. Positive bowel sounds. EXTREMITIES: No edema. NEURO: He is awake, alert, oriented x3. : No bladder distention. SKIN: Warm. LABORATORIES AND STUDIES: WBC 7.21, hemoglobin 16.1, hematocrit 47.0, platelets 209,000. Sodium 140, potassium 3.9, chloride 104, CO2 21, BUN is 15, creatinine 0.9, glucose is 94, troponin is 0.0107. ASSESSMENT: A 76-year-old male with a history of coronary artery disease, hypertension and hyperlipidemia, who had presented to the emergency department with recurring chest pain. The patient apparently had a workup that was negative. However, due to his continued chest pain, we will place the patient in for observation for further evaluation and management ASSESSMENT: 1. Recurrent chest pain. 2. History of coronary artery disease. 3. Hypertension. 4. Hyperlipidemia. PLAN: 1. We will admit patient to medical floor with telemetry. 2. Continue cardiac workup, check EKG, serial cardiac enzymes. Have patient continue on aspirin. We will use sublingual nitroglycerin and morphine p.r.n. chest pain. 3. We will consult Cardiology. 4. We will monitor blood pressure closely and resume antihypertensive agent. 5. We will restart his statin. 6. Put patient on DVT prophylaxis with SCDs. 7. We will continue to follow and reassess. cc: Jamie Ogden MD
--- NOTE | 2017-04-08 06:59 | DISCHARGE SUMMARY ---
ADMISSION DATE: 04/07/2017 DISCHARGE DATE: 04/07/2017 DISCHARGE DIAGNOSES: 1. This patient will be transferred to [facility] for non-ST elevation myocardial infarction. 2. History of coronary artery disease. 3. Hypertension. 4. Hyperlipidemia. 5. Hypothyroidism. CONSULTS: Cardiology department, Dr. Adkins. HOSPITAL COURSE: A 76-year-old male with a past medical history of coronary artery disease, hypertension, hyperlipidemia, and hypothyroidism who was just discharged from this hospital after having a negative workup for chest pain. The patient states that he went home and he started having chest pain again, substernal, pressure-like, around 8. Then he came to the emergency department and he continued to have ongoing chest discomfort. He received treatment and the pain seemed to improve. We started doing cardiac enzymes and the troponins were slowly going up. Dr. Adkins evaluated this patient and decided to transfer this patient to [facility]. This patient probably will have a cardiac catheterization. PHYSICAL EXAMINATION: Vital Signs: Temperature 97.7 degrees, pulse 64, respiratory rate 20, blood pressure 138/65, oxygen saturation 98 on room air. HEENT: Head normocephalic. No trauma. PERRLA. Neck: Supple. No JVD. No masses. Central trachea. Chest: Clear to auscultation. No wheezing. No rales. Cardiovascular: RRR. No murmurs. No gallops or rubs. Abdomen: Soft, nontender, nondistended. No hepatosplenomegaly. Obese. Extremities: No edema. No clubbing. No cyanosis. Neurological Examination: The patient is alert and oriented x3. No focal neurological deficits. FOLLOWUP: This patient will be transferred to [facility] for a cardiac catheterization and possible stent placement. DISCHARGE MEDICATIONS: Will be done by cardiology department at [facility]. cc: Ger Ventura MD
== END 2017-04-07 14:52 | disposition short-term general hospital (02) ==
LOC: ED 03:17 → 3N 03:17 → SUATTDRO 06:12
PROVIDERS: ATTEND Internal Medicine

== ENCOUNTER 2019-09-01 14:59 | Inpatient (IN) ==
--- NOTE | 2019-09-01 16:10 | PROVIDER DOCUMENTATION ---
HPI-Abdominal Pain/GI Problem - General Chief Complaint: SEPSIS ALERT - D Stated Complaint: ABD PAIN Time Seen by Provider: 09/01/19 15:50 Source: patient Allergies/Adverse Reactions: Patient Allergies Allergy/AdvReac Type Severity Reaction Status Date / Time No Known Allergies Allergy Verified 09/01/19 15:41 Home Medications: Home Medication List Medication Instructions Recorded Confirmed Last Taken Type Aspirin 81 mg PO DAILY 04/05/17 09/01/19 09/01/19 History Atorvastatin Calcium 40 mg PO DAILY 04/05/17 09/01/19 08/31/19 History Levothyroxine [Synthroid] 50 microgm PO DAILY 04/05/17 09/01/19 09/01/19 History Metoprolol Succinate E.r. [Toprol 50 mg PO DAILY 04/05/17 09/01/19 09/01/19 History Xl] Lutein 20 mg PO DAILY 08/18/17 09/01/19 09/01/19 History Psyllium Husk [Metamucil] 0.52 gm PO HS 08/18/17 09/01/19 Unknown History Hydrocodone/APAP 10 mg/325 mg 1 tab PO PRN PRN 09/01/19 09/01/19 09/01/19 History [[place]-10] Losartan Potassium 1 tab PO DAILY 09/01/19 09/01/19 09/01/19 History - History of Present Illness-ABD Nature of Presenting Problems: 79 YO M pmh for CAD s/p stents presents with intermittent RUQ abdominal pain radiating to back since last night. Assoicated fever, denies n/v. not assoicated with eating. States he took a pain pill from a previous dental procedure which relieved the pain some, but the pain returns. Currently 01/01. Last bm was yesterday and normal. denies urinary complaints. Pt has had previous partial colectomy and states this pain feels somewhat similar. Pt NAD on exam. Last meal was breakfast. Abdominal Pain Onset Location: reports: RUQ Pain Radiation: reports: back Severity in ED: reports: mild Onset/Duration: reports: 24 hours ago Timing: reports: still present, intermittent Activities at Onset: reports: none Exposure to sick contacts?: No Modifying Factors: improves with: analgesics Associated Symptoms: reports: back/neck pain. denies: chest pain, constipation, cough, shortness of breath Last BM: 24 hours ago Dark Stools Present?: reports: none noticed Emesis Description: reports: none Review of Systems - Adult - REVIEW OF SYSTEMS - ADULT Constitutional: reports: fever. denies: chills Eyes: reports: no symptoms reported Ears, Nose, Mouth & Throat: reports: no symptoms reported Cardiovascular: denies: chest pain, palpitations Respiratory: denies: cough, shortness of breath, wheezing Gastrointestinal: reports: see HPI, abdominal pain. denies: hematemesis, diarrhea, nausea, vomiting Genitourinary: denies: dysuria, hematuria Musculoskeletal: reports: no symptoms reported Integumentary: reports: no symptoms reported Neurological: reports: no symptoms reported Past History - Adult - PAST MEDICAL HISTORY-ADULT Review of Records: reports: Old Records Reviewed Major Childhood Illnesses: reports: denies history Cardiovascular: reports: CAD, HTN Respiratory: reports: denies history - PRIOR SURGERIES/PROCEDURES Surgical/Procedure History: reports: appendectomy, cardiac stent, other (cardiac stenting 1993, colon restion for diverticultis). denies: recent surgery - FAMILY HISTORY Family History: reviewed, not pertinent - SOCIAL HISTORY Smoking: quit greater than 1 year Substance Use: alcohol Alcohol Use Frequency: 3-4 times a week Number of drinks per typical drinking period:: 2 drinks Living Situation: family Physical Exam-General - PHYSICAL EXAM-ADULT Initial Vital Signs Reviewed: Yes - CONSTITUTIONAL General Appearance: alert, mild distress - EYES Eyes: PERRL/EOMI, pink conjunctivae - HEAD, EARS, NOSE, MOUTH & THROAT HENMT: moist mucous membranes - NECK Neck: full range of motion, supple - RESPIRATORY Respiratory: lungs clear, normal breath sounds - CARDIOVASCULAR Cardiovascular: regular rate, rhythm (HR 74 on exam) - GASTROINTESTINAL (ABDOMEN) Abdominal Exam: non tender, soft, other (midline scar, ostomy scar). negative: distended, hernia, mass - MUSCULOSKELETAL Back Exam: no CVA tenderness Extremity: normal range of motion, normal gait, normal inspection - SKIN Integumentary: normal turgor, warm/dry - NEUROLOGIC Neurologic: grossly normal - PSYCHIATRIC Psych/Mental Status: normal mood/affect, oriented x 3 Progress - PLAN OF CARE/RESULTS Progress/Plan/Lab Results: Vital Signs - 8 hr 09/01/19 15:10 Temperature 100.6 F H Pulse Rate 74 Respiratory Rate 22 Blood Pressure 155/69 O2 Sat by Pulse Oximetry 98 Orders Category Date Time Status Cardiac Monitoring DIRECTED Care 09/01/19 15:50 Active IV Insertion ORDERED Care 09/01/19 15:50 Active Notify MD of + Sepsis Screen NOW Care 09/01/19 15:50 Active Notify Physician As Ordered Care 09/01/19 15:50 Active CHEST-2 VIEWS [RAD] Stat Exams 09/01/19 16:[address] ABDOMEN/PELVIS W/O CONTRAST [CT] Stat Exams 09/01/19 16:03 Ordered BLOOD CULTURE [BLDCUL] Stat Lab 09/01/19 15:50 Uncollected CBC WITH DIFF [HEME] Stat Lab 09/01/19 15:50 Uncollected CK PROFILE [SP CHEM] Stat Lab 09/01/19 15:50 Uncollected COMPREHENSIVE METABOLIC PANEL [CHEM] Stat Lab 09/01/19 15:50 Uncollected LACTATE, PLASMA [CHEM] Lab 09/01/19 16:00 Uncollected LACTATE, PLASMA [CHEM] Lab 09/01/19 19:00 Uncollected LACTATE, PLASMA [CHEM] Lab 09/01/19 22:00 Uncollected LIPASE [CHEM] Stat Lab 09/01/19 16:03 Uncollected PROTIME WITH INR [COAG] Stat Lab 09/01/19 15:50 Uncollected PTT [COAG] Stat Lab 09/01/19 15:50 Uncollected TROPONIN T Stat Lab 09/01/19 15:50 Uncollected URINALYSIS W/POSS RFLX CULT [URINALYSIS] Stat Lab 09/01/19 15:50 Uncollected Oxygen Device Stat Oth 09/01/19 15:50 Active not sepsis at this time, mildly elevated white count, normal lactate. small ilieus as seen by CT. will start fluids and have pt npo. admission for observation. no abx needed at this time. Result Diagrams: 09/01/19 16:20 09/01/19 16:20 - REASSESSMENT Reassessment #1 Time Reassessed: 17:49 Status: improving (pt currently stable, labs reviewed.) - EKG 1 Time of EKG reading by physician:: 15:30 EKG Read and Signed by:: Pily Wells EKG Interpretation (*Must complete 3 of following elements*): Abnormal Rate: 72 Rhythm: sinus Lawtell: normal QRS: normal (1st degree AV block, normal QRS. unchanged from Sep 2018) Prior EKG Comparison: unchanged from prior - XRAY 1 XRAY Study: Chest Impression: See EMR Report (INDICATION: sepsis workup TECHNIQUE: 2 views COMPARISON: 10/10/2018 FINDINGS: There is mild subsegmental atelectasis at the right lower lung zone. There is a stable calcified granuloma at the right lung base. The lungs are grossly clear, otherwise. There is no discrete pleural fluid collection or pneumothorax. The cardiomediastinal silhouette and central vasculature are grossly unremarkable. IMPRESSION: Mild subsegmental atelectasis at the right lower lung zone. No definite acute pathology by plain radiograph, otherwise. Electronically signed by Diego De Los Santos 09/01/2019 4:58 PM) - CT/MRI 1 CT Study: Abdomen Impression: See EMR Report (TECHNIQUE: This exam was performed using automated exposure control, adjustment of mA or kV according to patient size, and/or use of iterative reconstruction technique. COMPARISON: None. FINDINGS: There is mild subsegmental atelectasis and/or scarring at the lung bases. There are layering stones in the gallbladder lumen. There is no evidence of pericholecystic inflammatory change. The liver, spleen, and pancreas are essentially unremarkable. There is mild nodular thickening of the left adrenal gland that statistically most likely represents a small underlying adrenal adenoma. There is a small cyst at the upper pole of the right kidney. There is symmetric bilateral perinephric stranding that appears chronic and is often associated with chronic renal insufficiency. There are no renal or ureteral stones and there is no hydronephrosis. Urinary bladder is grossly unremarkable. There is a surgical staple line associated with the sigmoid colon. There are se veral colonic diverticula, predominantly on the right but no evidence of diverticulitis. There is evidence of a prior appendectomy. There are a few loops of small bowel containing gas that are minimally distended and are nonspecific. Consider mild ileus related to enteritis. There is no obstructive bowel pattern. No focal bowel wall thickening is identified. The remainder of the GI tract is grossly unremarkable. No focal inflammatory changes, free abdominal gas, or free fluid is identified, otherwise. There is extensive aortoiliac atherosclerotic calcification. There is multilevel spondylosis. There is no evidence of acute osseous abnormality. IMPRESSION: 1.Cholelithiasis but no pericholecystic inflammatory changes identified. 2.No renal or ureteral stones and no evidence of acute obstructive uropathy. 3.A few slightly distended loops of small bowel containing air-fluid levels. Consider mild ileus. There is no evidence of obstruction. 4.Other incidental/nonacute findings detailed above.) - CONSULTS/PCP/HOSPITALIST Notification #1 *Consult/PCP/Hospitalist*: Kaya Time Discussed: 17:41 Consult Disposition: Will see in ED Departure - Departure Date of Disposition Decision: 09/01/19 Time of Disposition Decision: 17:34 DIAGNOSIS: Abdominal pain, Ileus Disposition: ADMITTED INPATIENT 09 Certified Medical Emergency: Emergent Condition: Stable Referrals and Follow-Ups: Chan De Souza MD [Primary Care Provider] - - Critical Care Note This patient required my direct & personal management of CC.: No Attestation - Physician/ ADAN Attestation The physician spent face to face time with patient:: Yes Advanced Practice Provider documentation review:: Supervising physician onsite and consulted in the evaluation and care of this patient. The physician did have a face to face encounter with the patient.
[2019-09-01 16:35] LABS: URINE SOURCE CLEAN CATCH
[2019-09-01 16:38] LABS: BASO# 0.06 X1000 (0.0-0.2); BASO% 0.5 % (0.0-0.8); EOS# 0.21 X1000 (0.0-0.7); EOS% 1.7 % (0.0-10.0); HEMATOCRIT 43.4 % (42.0-52.0); IMM GRAN# 0.03 X1000 (0.0-0.04); IMM GRAN% 0.2 % (0.0-0.5); LYMPH# 1.53 X1000 (1.2-3.4); LYMPH% 12.1 % (20.5-51.1); MCH 30.6 PG (27-31); MCHC 32.3 g/dL (33-37); MONO# 1.23 X1000 (0.11-0.59); MONO% 9.7 % (1.7-9.3); MPV 9.7 FL (7.4-10.4); NEUT# 9.56 X1000 (1.4-6.5); NEUT% 75.8 % (42.2-75.2); PLT 185 X1000 (130-400); RBC 4.57 XMIL (4.7-6.1); RDW 13.5 % (11.5-14.5); WBC 12.62 X1000 (4.8-10.8)
[2019-09-01 16:43] LABS: BILIRUBIN URINE NEGATIVE (NEGATIVE); BLOOD URINE NEGATIVE (NEGATIVE); COLOR YELLOW; GLUCOSE URINE NEGATIVE (NEGATIVE); KETONE URINE NEGATIVE (NEGATIVE); LEUKOCYTES URINE NEGATIVE (NEGATIVE); NITRITE URINE NEGATIVE (NEGATIVE); PH URINE 5.5; PROTEIN URINE TRACE mg/dL (NEGATIVE); TURBIDITY URINE CLEAR (CLEAR); UROBILINOGEN URINE 2 mg/dL (NORMAL)
[2019-09-01 16:45] LABS: UR EPITHELIAL CELLS <10 /HPF (<10); URINE BACTERIA NEGATIVE /HPF; URINE RBC <10 /HPF (<10); URINE WBC <10 /HPF (<10)
[2019-09-01 16:50] LABS: INR 1.09; PROTIME 14.2 Seconds (11.0-16.0)
[2019-09-01 16:51] LABS: PTT 28.2 Seconds (22.3-41.8)
--- NOTE | 2019-09-01 16:53 | EKG Report ---
Test Performed on : 09/01/2019 3:26:46 PM Test Reason : ED. No order in [place] Blood Pressure : / mmHG Vent. Rate : 072 BPM Atrial Rate : 072 BPM P-R Int : 222 ms QRS Dur : 094 ms QT Int : 396 ms P-R-T Axes : 048 -08 075 degrees QTc Int : 433 ms Sinus rhythm. with 1st degree AV block. with premature atrial complexes. Otherwise normal ECG When compared with ECG of 10-OCT-2018 22:37, premature atrial complexes. are now present Unconfirmed Result
--- NOTE | 2019-09-01 17:00 | Diag Imaging Result Doc PS360 ---
EXAM: CHEST-2 VIEWS INDICATION: sepsis workup TECHNIQUE: 2 views COMPARISON: 10/10/2018 FINDINGS: There is mild subsegmental atelectasis at the right lower lung zone. There is a stable calcified granuloma at the right lung base. The lungs are grossly clear, otherwise. There is no discrete pleural fluid collection or pneumothorax. The cardiomediastinal silhouette and central vasculature are grossly unremarkable. IMPRESSION: Mild subsegmental atelectasis at the right lower lung zone. No definite acute pathology by plain radiograph, otherwise. Electronically signed by Diego De Los Santos 09/01/2019 4:58 PM
[2019-09-01 17:05] LABS: AGAP 12; ALB/GLOB RATIO 1.4; ALBUMIN 3.9 g/dL (3.5-5.0); ALKALINE PHOSPHATASE 105 U/L (32-122); BUN 15 mg/dL (8-22); CALCIUM 8.6 mg/dL (8.8-10.2); CHLORIDE 102 mmol/L (98-107); CK PROFILE 84 U/L (24-204); COSMO 273; CREATININE 0.9 mg/dL (0.7-1.2); ESTIMATED GFR > 60; GLUCOSE 107 mg/dL (70-104); GOT 15 U/L (10-34); GPT 12 U/L (10-44); LIPASE 21 U/L (13-60); SODIUM 136 mmol/L (136-145); TCO2 22 mmol/L (25-35); TOTAL PROTEIN 6.7 g/dL (6.3-8.3)
--- NOTE | 2019-09-01 17:11 | Diag Imaging Result Doc PS360 ---
EXAM: CT ABDOMEN/PELVIS W/O CONTRAST INDICATION: RUQ abd pain radiating to back TECHNIQUE: This exam was performed using automated exposure control, adjustment of mA or kV according to patient size, and/or use of iterative reconstruction technique. COMPARISON: None. FINDINGS: There is mild subsegmental atelectasis and/or scarring at the lung bases. There are layering stones in the gallbladder lumen. There is no evidence of pericholecystic inflammatory change. The liver, spleen, and pancreas are essentially unremarkable. There is mild nodular thickening of the left adrenal gland that statistically most likely represents a small underlying adrenal adenoma. There is a small cyst at the upper pole of the right kidney. There is symmetric bilateral perinephric stranding that appears chronic and is often associated with chronic renal insufficiency. There are no renal or ureteral stones and there is no hydronephrosis. Urinary bladder is grossly unremarkable. There is a surgical staple line associated with the sigmoid colon. There are several colonic diverticula, predominantly on the right but no evidence of diverticulitis. There is evidence of a prior appendectomy. There are a few loops of small bowel containing gas that are minimally distended and are nonspecific. Consider mild ileus related to enteritis. There is no obstructive bowel pattern. No focal bowel wall thickening is identified. The remainder of the GI tract is grossly unremarkable. No focal inflammatory changes, free abdominal gas, or free fluid is identified, otherwise. There is extensive aortoiliac atherosclerotic calcification. There is multilevel spondylosis. There is no evidence of acute osseous abnormality. IMPRESSION: 1.Cholelithiasis but no pericholecystic inflammatory changes identified. 2.No renal or ureteral stones and no evidence of acute obstructive uropathy. 3.A few slightly distended loops of small bowel containing air-fluid levels. Consider mild ileus. There is no evidence of obstruction. 4.Other incidental/nonacute findings detailed above. Electronically signed by Diego De Los Santos 09/01/2019 5:09 PM
[2019-09-01] MEDS ORDERED: DUONEB (A & A) INH PRN (18:27)
[2019-09-01] MEDS ORDERED: TYLENOL PO PRN (18:27)
[2019-09-01] MEDS ORDERED: ZOFRAN IV PRN (18:27)
[2019-09-01] MEDS ORDERED: ZOSYN 3.375 GM in NS 50 ML IV SCH (18:30)
--- NOTE | 2019-09-01 19:31 | HISTORY AND PHYSICAL ---
PRIMARY CARE PROVIDER: Chan De Souza. CHIEF COMPLAINT: Right upper quadrant, rib to flank, and back area pain. HISTORY OF PRESENT ILLNESS: Mr. Nice is a 79-year-old, male, with a medical history of coronary artery disease, two cardiac stents, hypothyroidism, hyperlipidemia, diverticula with colon resection history, who presents with complaints of right upper quadrant, almost underneath the rib cage area, that radiates all of the way around to the back. It is worse with inspiration, but is a continuous discomfort. He also has a history of having three teeth extracted on August 21, where he has been taking pain medication, [place] 10, ever since. Given the abdominal pain, an abdominal pelvic CT had been ordered. which resulted as cholelithiasis, but no pericholecystic inflammatory changes. There were no stones. There was a possible mild ileus, but no obstruction. It showed some mild subsegmental atelectasis or scarring at the lung bases. It does say in the findings paragraph area that consider mild ileus related to enteritis. He also has multilevel spondylosis. Chest x-ray shows right lower lobe atelectasis as well. He presents with a fever of 100.6 and a white count of 12,000. It is possible he could have a right lower lobe pneumonia. We are also going to evaluate a D-dimer to see if there is any risk for PE of that right lower lobe. If there is an ileus, it is very minimal, and it does mention that there could be some enteritis, but either way, if there is pneumonia or if there is enteritis, he is going to get some IV fluids and IV antibiotics. PAST MEDICAL HISTORY: 1. CAD with ID in 2017. He has two cardiac stents, one is known to be in the circumflex that was put in in 1993. He has had another one placed in 2017. 2. Hypothyroidism. 3. Hyperlipidemia. 4. Skin cancer. 5. Arthritis. 6. Diverticula. 7. Obstructive sleep apnea with CPAP at night. SURGICAL HISTORY: 1. Vasectomy. 2. Two cardiac stents, 1993 x1, and 2016 x1. 3. Appendectomy. 4. Three teeth extracted, 08/21/2019. 5. Skin cancer excision. 6. Colon resection secondary to diverticula, I believe it was in the sigmoid colon. SOCIAL HISTORY: He used to smoke a cigar about three times a week, but quit that 30 years ago. He admits to drinking three or four drinks per week, which are gin and tonic or Renaldo and coke. Denies any illicit drug use. He is retired from [employer]. is at the bedside. They have been 51 years. He currently ambulates with cane and walker. He says it is secondary to pain in his legs when he walks. FAMILY HISTORY: Father in his 80s secondary to a house fire. Mother from intracranial bleeding secondary to a fall. ALLERGIES: No known drug allergies. HOME MEDICATIONS: 1. Aspirin 81 mg p.o. daily. 2. Atorvastatin calcium 40 mg p.o. daily. 3. Losartan potassium 50 mg p.o. daily. 4. Lutein 20 mg p.o. daily. 5. Metamucil p.o. nightly. 6. [place] 10 one tablet p.o. p.r.n. 7. Synthroid 50 mcg p.o. daily. 8. Toprol-XL 50 mg p.o. daily. REVIEW OF SYSTEMS: A 14-point review of systems is complete. All were negative, except for those mentioned above in HPI. PHYSICAL EXAMINATION: VITAL SIGNS: Temperature 100.6 degrees, heart rate 70, respiratory rate 21, blood pressure 162/70, O2 saturation 97% on room air. He is 6 feet 1 inch tall, 270 pounds. BMI is 35.6. GENERAL: Mr. Иван Nice is a 79-year-old, male. He is in no acute distress. He is able to answer questions appropriately. HEENT: Atraumatic, normocephalic. Pupils equal, round, reactive to light. Extraocular movements intact. Mucous membranes are dry. NECK: Trachea midline. CARDIOVASCULAR: S1, S2. Regular rate and rhythm. No rubs, gallops, murmurs. EXTREMITIES: No lower extremity edema. Dorsalis and radial pulses +2. Negative JVD or carotid bruits. PULMONARY: Clear to auscultation. Bilateral breath sounds. No accessory muscle use or work of breathing noted. This is anteriorly and posteriorly. SKIN: Warm, dry, intact. NEUROLOGIC: A O x3. Follows commands. Sensory is intact. LABORATORY DATA: White blood cells 12,000, hemoglobin 14, hematocrit 43, platelet count 185,000. INR is 1.09, PTT 28.2. Sodium 136, potassium 5.0, BUN 15, creatinine 0.9, glucose 107, calcium 8.6. Bilirubin 1.60, AST 15, ALT 12. CK 84. Troponin is less than 0.01. Albumin 3.9, lipase 21, lactate 1.2. Urinalysis: Trace protein, 2 urobilinogen, dipstick. IMAGING: Cholelithiasis on abdominal and pelvic CT without contrast. Cholelithiasis, but no inflammatory changes. No stones. Possible mild ileus, it says consider mild ileus related to enteritis, but no obstruction. It also showed bibasilar scarring or atelectasis in the lungs. Chest x-ray shows mild subsegmental atelectasis in the right lower lung zone. EKG is sinus rhythm, first-degree AV block, rate 72, QTc is 433. ASSESSMENT/PLAN: 1. Right upper quadrant abdominal / right loer chest pain. Cause is unknown. It is worse with inspiration. Could possibly be a right lower lobe pneumonia, might could be a pulmonary embolus. We are going to get a D-dimer to evaluate. If it is elevated, may have to send for a CTA of the lungs. He does have fever and elevated white count, so he will be on antibiotics. 2. Possible right lower lobe pneumonia or it just straight up atelectasis, but he does have fever. He is not exactly coughing anything up or complaining of shortness of breath, but complains that his breath is taken away when he breathes in deeply and he had chills last night. He will be on Zosyn. 4. History of coronary artery disease and myocardial infarction with cardiac stents. Will continue home medications. Denies any chest pain. Cardiac enzymes negative. 5. Hyperlipidemia. Continue statin. 6. Hypothyroidism. Continue Synthroid. 7. Obstructive sleep apnea. Wears CPAP at night. We will continue that here. 8. Diverticula, but no signs or symptoms of diverticulitis. He does have a history of colon resection secondary to diverticula. 9. Hyperbilirubinemia. Possibly from dehydration. Could be from drinking. So far, he only admits to drinking three or four drinks per week, but maybe with hydration, the bilirubin will return to normal. 10. Fever with leukocytosis, without lactic acidosis. Unclear source, but he did have tooth extraction back on the . We are getting blood cultures to rule out any type of bacteremia. It could be a possibility that there is a right lower lobe pneumonia. It hurts in that area with deep inspiration. Continue IV antibiotics and Tylenol for fever. 11. Deep venous thrombosis prophylaxis. Lovenox. Dictated by HELEN Julio for Rober Anderson MD cc: HELEN Julio MD I agree with most components of history, physical, assessment and plan. A separate addendum has been dictated. MTDD
--- NOTE | 2019-09-01 19:58 | HISTORY AND PHYSICAL ---
ADDENDUM: This is an addendum to the history and physical dictated by nurse practitioner. I agree with most components of the history, physical, assessment and plan. In brief, Mr. Nice is a 79-year-old man with past medical history of coronary artery disease, requiring stent in 03/2017; essential hypertension. He came in with chief complaint of right-sided flank pain since today morning, associated with fevers, chills and right-sided pleuritic chest pain of about 12 hours' duration. In the emergency room he was found to have fever of 100.6 degrees, WBC of 12,000. CT scan of the abdomen and pelvis was largely unremarkable, so the hospitalist was consulted for further management. At the time of my evaluation, the patient denies any nausea, vomiting or abdominal pain. He denies any cough or shortness of breath, though at the time of my evaluation, he does appear mildly short of breath. He had a dental extraction procedure done 10 days prior to current admission. He is currently a nonsmoker. His is at bedside. PHYSICAL EXAMINATION: VITAL SIGNS: Temperature of 100.6 degrees, pulse of 70, respiratory rate 15, blood pressure 160/70, saturating 97% on room air. GENERAL: Not in acute distress. HEENT: Oral cavity is moist. LUNGS: He has decreased air entry with inspiratory crackles, right infrascapular region. No egophony. HEART: S1, S2 normal. No murmur or gallop. ABDOMEN: Soft, nontender. Negative Solis sign. Active bowel sounds. EXTREMITIES: Mild bilateral lower extremity edema. LABORATORY DATA: Labs suggestive of leukocytosis. Essentially normal electrolytes, slightly elevated total bilirubin. Microbiology: Blood culture has been drawn. DIAGNOSTIC DATA: Abdomen and pelvis CT had suggested cholelithiasis without pericholecystic inflammatory changes. No evidence of any acute obstructive uropathy. Mild ileus without any obstruction. Chest x-ray had suggested mild subsegmental atelectasis at right lower lung zone. No definite acute pathology. Abdominal ultrasound has been performed, the results of which are pending. ASSESSMENT AND PLAN: 1. Presumed sepsis, most likely due to right lower lobe pneumonia. Other differential also includes acute cholecystitis. 2. Bilateral lower extremity edema with pleuritic chest pain, pending D-dimer to rule out pulmonary embolism. 3. History of coronary artery disease, with stent in 03/2017. 4. Essential hypertension. PLAN: I will start the patient on intravenous ceftriaxone and azithromycin. We will follow up with blood culture, urine antigen. We will admit him in telemetry unit for presumed sepsis, though his lactic was normal on presentation. I will also follow up ultrasound right upper quadrant results as well as D-dimer. Plan of care extensively discussed with the patient and his at bedside. Their questions have been answered. cc: Rober Anderson MD MTDD
[2019-09-01] MEDS ORDERED: LOVENOX SUBQ SCH (20:00)
--- NOTE | 2019-09-01 20:09 | Diag Imaging Result Doc PS360 ---
EXAM: US GB < RUQ (LIMITED) INDICATION: Rule out acute cholecystitis COMPARISON: None. FINDINGS: There are several small shadowing stones layering in the gallbladder lumen. No definite gallbladder wall thickening or pericholecystic fluid is identified. The common bile duct is normal in diameter. The liver is grossly unremarkable. Portal venous flow is hepatopetal. The pancreas is largely obscured. Visualized portion is unremarkable. The aorta and IVC are partially obscured. The visualized portions are unremarkable. The right kidney is grossly unremarkable. IMPRESSION: Cholelithiasis. No definite gallbladder wall thickening appreciated. Electronically signed by Diego De Los Santos 09/01/2019 8:06 PM
[2019-09-01] MEDS: ROCEPHIN 1 GM in NS 50 ML IV SCH (20:31)
[2019-09-01] MEDS: NS 1,000 ML IV SCH (20:31)
[2019-09-01] MEDS: METAMUCIL PO SCH (20:33)
[2019-09-01] MEDS: LIPITOR PO SCH (20:48)
[2019-09-01] MEDS: ZITHROMAX PO SCH (20:48)
[2019-09-01] MEDS ORDERED: LIPITOR PO SCH (21:00)
[2019-09-02] MEDS: NORCO-7.5 PO PRN ×2 (02:01→12:58)
[2019-09-02] MEDS ORDERED: LOVENOX SUBQ SCH ×2 (05:00→09:00)
[2019-09-02 05:55] LABS: BASO# 0.02 X1000 (0.0-0.2); BASO% 0.2 % (0.0-0.8); EOS# 0.16 X1000 (0.0-0.7); EOS% 1.3 % (0.0-10.0); HEMATOCRIT 40.6 % (42.0-52.0); HEMOGLOBIN 13.1 g/dL (14.0-18.0); IMM GRAN# 0.03 X1000 (0.0-0.04); IMM GRAN% 0.3 % (0.0-0.5); LYMPH# 1.34 X1000 (1.2-3.4); LYMPH% 11.3 % (20.5-51.1); MCH 30.8 PG (27-31); MCHC 32.3 g/dL (33-37); MCV 95.5 FL (81-99); MONO# 1.33 X1000 (0.11-0.59); MONO% 11.2 % (1.7-9.3); MPV 9.9 FL (7.4-10.4); NEUT# 8.99 X1000 (1.4-6.5); NEUT% 75.7 % (42.2-75.2); PLT 166 X1000 (130-400); RBC 4.25 XMIL (4.7-6.1); RDW 13.7 % (11.5-14.5); WBC 11.87 X1000 (4.8-10.8)
[2019-09-02 06:11] LABS: INR 1.13; PROTIME 14.7 Seconds (11.0-16.0)
[2019-09-02 06:12] LABS: PTT 35.8 Seconds (22.3-41.8)
[2019-09-02 06:18] LABS: AGAP 11; ALB/GLOB RATIO 1.1; ALBUMIN 3.4 g/dL (3.5-5.0); ALKALINE PHOSPHATASE 90 U/L (32-122); BUN 12 mg/dL (8-22); CALCIUM 8.4 mg/dL (8.8-10.2); CHLORIDE 104 mmol/L (98-107); COSMO 272; CREATININE 0.7 mg/dL (0.7-1.2); ESTIMATED GFR > 60; GLUCOSE 103 mg/dL (70-104); GOT 13 U/L (10-34); GPT 9 U/L (10-44); POTASSIUM 4.3 mmol/L (3.5-5.1); SODIUM 136 mmol/L (136-145); TCO2 21 mmol/L (25-35); TOTAL BILIRUBIN 1.52 mg/dL (0.20-1.00); TOTAL PROTEIN 6.4 g/dL (6.3-8.3)
[2019-09-02] MEDS: SYNTHROID PO SCH (06:52)
--- NOTE | 2019-09-02 08:43 | Diag Imaging Result Doc PS360 ---
EXAM: CT ANGIOGRM PULMONARY ARTERIES INDICATION: Rule out Pulmonary embolism TECHNIQUE: This exam was performed using automated exposure control, adjustment of mA or kV according to patient size, and/or use of iterative reconstruction technique. Thin section axial images and 3-D MIPS were obtained. COMPARISON: 04/05/2017 FINDINGS: There are filling defects in the segmental and subsegmental branches of the right pulmonary artery leading to the right lower lobe consistent with pulmonary emboli. No other filling defects are identified. Clot burden is mild to moderate overall. There is no right ventricular enlargement. There is patchy aortic atherosclerotic calcification. There is no evidence of aortic aneurysm or dissection. There are calcified mediastinal and hilar lymph nodes indicating prior granulomatous disease. There is subsegmental atelectasis at the right lower lung zone and milder atelectasis at the left lung base. There is nothing to suggest a pulmonary infarct. There is a calcified granuloma in the right lower lobe. There is trace pleural fluid at the right lung base. There is no pneumothorax. Limited views of the upper abdomen reveal a few small stones in the gallbladder lumen. No pericholecystic inflammatory change is appreciated. IMPRESSION: 1.Acute pulmonary emboli involving segmental and subsegmental branches of the right pulmonary artery as detailed above. 2.Bilateral atelectasis, more prominent on the right. 3.Other incidental/nonacute findings detailed above. Electronically signed by Diego De Los Santos 09/02/2019 8:41 AM
[2019-09-02] MEDS: TOPROL XL PO SCH (10:40)
[2019-09-02] MEDS: NS 1,000 ML IV SCH (10:40)
[2019-09-02] MEDS: ASPIRIN PO SCH (10:40)
[2019-09-02] MEDS: ZITHROMAX PO SCH (10:40)
[2019-09-02] MEDS: PATIENT'S OWN MED PO SCH (10:41)
[2019-09-02] MEDS: COZAAR PO SCH (10:41)
--- NOTE | 2019-09-02 10:45 | PROGRESS NOTE ---
DATE: 09/02/2019 INTERVAL HISTORY: His D-dimer was elevated, so I had ordered CT scan of pulmonary arteries to rule out pulmonary embolism which did in fact detected right lower lobe pulmonary embolism, and he was started on therapeutic dose of enoxaparin. SUBJECTIVE: He is feeling slightly better today than he did yesterday. He has not had any fever episode. He is sitting in the chair. I explained to him about his diagnosis. I also explained to him about awaiting blood culture results since he had teeth extraction a few days ago which could result in bacteremia and could possibly explain his fever. VITALS: Currently temperature 98.3 degrees, pulse 71, respiratory rate 24, blood pressure 150/59, saturating 95% on room air. PHYSICAL EXAMINATION: General: Morbidly obese, not in any acute distress. HEENT: Oral cavity is moist. Lungs: Air entry decreased in right inframammary and infra-axillary region with inspiratory crackles. No wheeze or rhonchi. Adequate air entry on left hemithorax. Heart: S1, S2 normal. Regular. No murmur, rub, or gallop. Abdomen: Obese, soft, nontender. Extremities: He has mild bilateral lower extremity edema. LABS: Suggestive of mild leukocytosis, normocytic anemia, normal platelet count, elevated D- dimer. He does have normal kidney function. Slight elevation of total bilirubin with essentially normal liver enzymes. MICROBIOLOGY: Blood culture in lab. IMAGING: Pulmonary arteriogram is detecting acute pulmonary emboli involving segmental and subsegmental branches of the right pulmonary artery, bilateral atelectasis, more prominent on the right. Abdomen ultrasound had cholelithiasis without any gallbladder wall thickening. ASSESSMENT AND PLAN: 1. Presumed sepsis. The source of this is unclear. He does not have pneumonia or cholecystitis. Blood cultures are pending. He did have teeth extraction 10 days prior to current presentation. Large pulmonary embolism and resulting infarct or atelectasis could be a contributing factor. I will continue intravenous ceftriaxone and follow up with blood culture results tomorrow and accordingly stop the antibiotics. 2. Acute right lower lobe pulmonary embolism and right sided chest pain. He is obese and has decreased functioning because of chronic bilateral knee pain. This could be underlying etiology for his pulmonary embolism. He does not have any known active cancer, any prior history of clotting or positive family history or recent travel or injury. I will switch his anticoagulation to Eliquis and follow up bilateral lower extremity ultrasound to see if he has DVT. I talked with him at length about warfarin, apixaban, and rivaroxaban. Advantages, disadvantages, and he is in agreement with continuing with apixaban at the moment. I also explained to him about following up outpatient with his regular physician and equipment [employer]. I also discussed with him about bleeding risk. 3. History of coronary artery disease with stent in 2017. May continue his home aspirin, high- dose atorvastatin, losartan, metoprolol. 4. Others. Continue levothyroxine for hypothyroidism, [place] for pleuritic chest pain, psyllium husk and add MiraLAX for constipation. On my review of imaging, I do not think he has ileus. 5. Disposition. I will await final blood culture results and ultrasound of bilateral lower extremity and accordingly consider discharging him tomorrow. Plan of care discussed with him. His questions have been answered. cc: Rober Anderson MD MTDD
[2019-09-02] MEDS: MIRALAX PO SCH ×2 (10:46→20:42)
[2019-09-02] MEDS: ROCEPHIN 1 GM in NS 50 ML IV SCH (20:41)
[2019-09-02] MEDS: ELIQUIS PO SCH (20:43)
[2019-09-02] MEDS: LIPITOR PO SCH (20:43)
[2019-09-02] MEDS: METAMUCIL PO SCH (20:43)
[2019-09-03] MEDS: SYNTHROID PO SCH (06:21)
[2019-09-03 06:42] LABS: BASO# 0.02 X1000 (0.0-0.2); BASO% 0.2 % (0.0-0.8); EOS# 0.13 X1000 (0.0-0.7); HEMATOCRIT 38.8 % (42.0-52.0); HEMOGLOBIN 12.6 g/dL (14.0-18.0); IMM GRAN# 0.03 X1000 (0.0-0.04); IMM GRAN% 0.2 % (0.0-0.5); LYMPH# 1.14 X1000 (1.2-3.4); LYMPH% 9.2 % (20.5-51.1); MCH 31.1 PG (27-31); MCHC 32.5 g/dL (33-37); MCV 95.8 FL (81-99); MONO# 1.35 X1000 (0.11-0.59); MONO% 10.9 % (1.7-9.3); MPV 9.6 FL (7.4-10.4); NEUT# 9.72 X1000 (1.4-6.5); NEUT% 78.5 % (42.2-75.2); PLT 170 X1000 (130-400); RBC 4.05 XMIL (4.7-6.1); RDW 13.4 % (11.5-14.5); WBC 12.39 X1000 (4.8-10.8)
[2019-09-03 07:01] LABS: AGAP 7; ALB/GLOB RATIO 1.1; ALBUMIN 3.2 g/dL (3.5-5.0); ALKALINE PHOSPHATASE 91 U/L (32-122); BUN 11 mg/dL (8-22); CHLORIDE 105 mmol/L (98-107); COSMO 272; CREATININE 0.9 mg/dL (0.7-1.2); ESTIMATED GFR > 60; GLUCOSE 114 mg/dL (70-104); GOT 11 U/L (10-34); GPT 8 U/L (10-44); MAGNESIUM 2.1 mg/dL (1.5-2.7); POTASSIUM 4.7 mmol/L (3.5-5.1); SODIUM 136 mmol/L (136-145); TCO2 24 mmol/L (25-35); TOTAL BILIRUBIN 1.83 mg/dL (0.20-1.00); TOTAL PROTEIN 6.1 g/dL (6.3-8.3)
[2019-09-03 08:14] VITALS: BP 137/57
[2019-09-03] MEDS: MIRALAX PO SCH (08:41)
[2019-09-03] MEDS: COZAAR PO SCH (08:42)
[2019-09-03] MEDS: ELIQUIS PO SCH (08:42)
[2019-09-03] MEDS: ASPIRIN PO SCH (08:42)
[2019-09-03] MEDS: TOPROL XL PO SCH (08:42)
[2019-09-03] MEDS: ZITHROMAX PO SCH (08:43)
[2019-09-03] MEDS: PATIENT'S OWN MED PO SCH (08:44)
--- NOTE | 2019-09-03 11:18 | DISCHARGE SUMMARY ---
ADMISSION DATE: 09/01/2019 DISCHARGE DATE: 09/03/2019 DISCHARGE DISPOSITION: Home. DISCHARGE CONDITION: Hemodynamically stable. He is able to come out of bed and walk in the room. His pleuritic chest pain is also better. His ultrasound had detected extensive DVT affecting left lower extremity. The official read is pending. I advised him about following up with his regular physician and melter caster within 7 days. Discussed about getting repeat CBC to make sure it is getting better and had have a discussion about taking Eliquis and aspirin together. DISCHARGE DIAGNOSES: 1. Acute right lower lobe pulmonary embolism. 2. Right-sided pleuritic chest pain. 3. Left lower extremity extensive deep venous thrombosis. The official report is pending. 4. Leukocytosis and fever of unclear etiology. Could be related to large clot burden in deep venous thrombosis and pulmonary embolism. OTHER DIAGNOSES: 1. Recent teeth extraction ten days prior to current presentation. 2. History of coronary artery disease with stent in 2017. 3. Hyperlipidemia. 4. Essential hypertension. 5. Hypothyroidism. 6. Constipation and chronic pain. 7. Arthritis. 8. Skin cancer. 9. Obstructive sleep apnea with CPAP at night. 10. Colon resection secondary to diverticulitis. DISCHARGE MEDICATIONS: Aspirin 81 mg daily, atorvastatin 40 mg daily, losartan 50 mg daily, lutein 20 mg daily, psyllium husk 0.52 g at nighttime, [place] 10 one tablet as needed for pain, levothyroxine 50 mcg daily, metoprolol succinate extended release 50 mg daily, apixaban 10 mg b.i.d. for 6 more days and then 5 mg b.i.d. for at least 3 months with 1 refill. VITALS: At the time of discharge, temperature 98.5 degrees, pulse 69, respiratory rate 16, blood pressure 137/57, saturating 97% on room air. PHYSICAL EXAMINATION: General: Does not appear in acute distress. Morbidly obese. Oral cavity is moist. Lungs: Air entry bilaterally equal. No wheeze, rhonchi, or crackles. Cardiovascular: S1, S2 normal. No murmur, rub, or gallop. Abdomen: Soft, obese, nontender. No lower extremity edema. SIGNIFICANT LABS DURING HOSPITAL ADMISSION AND DISCHARGE: His WBC is 12.3, hemoglobin 12.6, platelets of 170,000. He has potassium of 4.7, BUN of 11, creatinine 0.9. His total bilirubin is 1.8, AST 11, ALT 8. Urinalysis did not have any pyuria. MICROBIOLOGY: Blood culture did not have any growth. IMAGIN. On admission, abdomen and pelvis CT performed for right upper quadrant and lower chest pain had cholelithiasis without any pericholecystic inflammatory changes. No renal or ureteral stones. No evidence of acute obstructive uropathy. There were distended loops of bowel containing air-fluid level, suggestive of ileus without any evidence of obstruction. 2. Chest x-ray on admission had mild subsegmental atelectasis in right lower lung zone without any acute pathology. 3. Abdominal ultrasound had cholelithiasis. No definitive gallbladder wall thickening. 4. Pulmonary arteriogram had acute pulmonary emboli involving segmental and subsegmental branches of the right coronary artery. There were bilateral atelectases, more prominent on the right, other nonacute findings. 5. Ultrasound of the bilateral lower extremities, official report was pending. I was told on the phone that he had extensive DVT affecting the left lower extremity. 6. Cardiovascular: On admission, electrocardiogram had sinus rhythm with first-degree AV block with premature atrial contraction. HOSPITAL COURSE SUMMARY: Mr. Nice is a 79-year-old, man with a past medical history of coronary artery disease requiring stent in March 2017, essential hypertension, who came in with sudden onset right-sided flank pain since 12 hours prior to presentation. The pain was pleuritic in nature and getting worse on deep inspiration. In the emergency room, he was found to have a WBC count of 12,000, fever of 100.6. CT scan of the abdomen and pelvis was largely unremarkable except suggestive of mild ileus, so hospitalist team was consulted for further management. On my review of images, I did not appreciate any significant ileus and patient had a bowel movement 12 hours prior to presentation. He was not having nausea, vomiting, or abdominal pain. He did have bilateral lower extremity edema and considering his pleuritic chest pain, suspicion of pneumonia leading to sepsis and pulmonary embolism were raised. His D-dimer was elevated to 6.28, so pulmonary arteriogram was performed which had detected right lung pulmonary embolism. Initially, patient was treated with enoxaparin. Later on, this was changed to apixaban, which he has been tolerating well. There was no evidence of pneumonia, so initially started ceftriaxone, azithromycin, stopped at the time of discharge. It was thought that his mild WBC count and mild fever of 100.5 could be related to his large clot burden. He was discharged on oral Eliquis and was advised to have outpatient followup with regular provider and melter caster, and discuss about current admission and getting a repeat CBC. Plan of care was discussed with the patient and his . All of their questions were answered. More than 30 minutes were spent on this patient. cc: Rober Anderson MD
--- NOTE | 2019-09-07 14:59 | Extremity Venous Study ---
PROCEDURE NAME: Venous U/S Bilateral Legs - 09/02/2019 PROCEDURE: Bilateral lower extremity venous duplex and color flow imaging study using the [employer] vivid E9 ultrasound system with a 9 L-D transducer. REFERRING PHYSICIAN: Dr. Anderson. IDENTIFICATION: Inpatient, 79-year-old male. GRIT BLASTER: Stella Gutierrez RVT. INDICATIONS: Pulmonary embolus. FINDINGS: The right common femoral vein and its branches, deep and superficial femoral veins were satisfactorily imaged. They had flow through them and were compressible. Right popliteal vein and deep veins below the right knee were all compressible and had flow through them. The superficial veins of the right lower extremity were compressible throughout their length. The left common femoral vein and its branches, deep and superficial femoral veins were also satisfactorily imaged. There was an acute deep venous thrombosis involving the left femoral vein within the thigh, and extending distally into the popliteal vein and the small veins below the left knee. There was no evidence of superficial venous thrombosis of the left lower extremity. INTERPRETATION: Acute long-segment deep venous thrombosis, left lower extremity. There was no evidence of acute deep or superficial venous thrombosis of the right lower extremity. cc: MD Rober Ortiz MD
[2019-09-09] MEDS ORDERED: ELIQUIS PO SCH (21:00)
== END 2019-09-03 10:27 | disposition home or self-care (01) | DRG 176 ==
LOC: ED 14:59 → 1N 18:47
PROVIDERS: ATTEND Internal Medicine